=== PATIENT | female | born 2000 | race Caucasian/White ===

== ENCOUNTER 2021-03-27 20:06 | Observation (INO) | payer BC ==
[2021-03-27 20:32] LABS: BASO % 0.2 % (0.0-2.0); EOS % 0.1 % (0-4.0); GRAN # 15.8 K/mm3 (1.4-6.5); GRAN % 87.9 % (42.2-75.2); LYMPH # 1.5 K/mm3 (1.2-3.4); LYMPH % 8.2 % (20.0-51.0); MEAN CELL VOLUME 91 fl (80.0-100.0); MEAN CORPUSCULAR HEMOGLOBIN 31 pg (27.0-31.0); MEAN CORPUSCULAR HGB CONC 34 g/dl (33.0-37.0); MEAN PLATELET VOLUME 10.5 fl (7.4-10.4); MONO # 0.5 K/mm3 (0.1-0.6); PLATELET COUNT 317 K/mm3 (130-400); REDCELL DISTRIBUTION WIDTH-CV 11.9 % (11.5-14.5)
[2021-03-27 20:35] LABS: HEMATOCRIT 32.8 % (37.0-47.0)
[2021-03-27] MEDS ORDERED: LEXAPRO 10MG10 MG PO (20:43)
[2021-03-27] MEDS ORDERED: CYTOTEC 10100 MCG/TA PO (20:44)
[2021-03-27] MEDS ORDERED: LEXAPRO20 MG PO (20:44)
[2021-03-27 20:47] LABS: ALBUMIN 3.2 gm/dL (3.5-5.0); BILIRUBIN,TOTAL 0.5 mg/dL (0.2-1.2); CALCIUM 9.2 mg/dL (8.4-10.2); CREATININE, serum 0.77 mg/dL (0.57-1.11); POTASSIUM 3.4 mmol/L (3.5-4.5); TOTAL PROTEIN 6.9 gm/dL (6.2-8.1)
[2021-03-27 22:10] LABS: HEMATOCRIT 23.7 % (37.0-47.0); HEMOGLOBIN 7.9 g/dl (12.5-16.0)
[2021-03-28 00:30] VITALS: BP 90/50; PULSE 78; TEMP 98.3
--- NOTE | 2021-03-28 00:30 | NUR ---
0030 TO 222 PER STRETCHER FROM ER WITH C/O HEAVY VAGINAL BLEEDING STARTING LAST EVENING. STATES WAS ON CYTOTEC FOR 6 DAYS PRIOR FOR PREVENTION. THIS EVENING STARTED BLEEDING HEAVY AND SOAKING A LARGE V-PAD IN 30 MINUTES OR LESS. IV INFUSING PER IV PUMP AT 125CC/HR. VS DONE. UP TO BR WITH ASSIST TO VOID. VOIDED 200CC WITH SCANT [place]INK[place] VAG DISCHARGE NOTED. PAD AND PANTIES ON. NO C/O PAIN. INSTRUCTED ON NPO.
[2021-03-28 04:30] VITALS: BP 94/51; PULSE 65; TEMP 98.2
--- NOTE | 2021-03-28 04:30 | NUR ---
0430 PAD CHECKED. SCANT [place] DISCHARGE RHIANNON PAD. LAB IN TO DRAW BLOOD BUT UNABLE TO OBTAIN SPECIMEN
[2021-03-28 07:56] LABS: HEMATOCRIT 23.4 % (37.0-47.0); HEMOGLOBIN 7.7 g/dl (12.5-16.0)
[2021-03-28 08:00] VITALS: BP 106/61; PULSE 78
--- NOTE | 2021-03-28 09:50 | NUR ---
Discharge instructions and follow up care reviewed with pt. Pt verbalized an understanding, agreed with the plan and states no questions or concerns at this time.
== END 2021-03-28 08:00 | disposition home or self-care (01) ==
LOC: COL.ER 20:06 → OB 22:20
PROVIDERS: Nurse Practitioner Family; ADMIT Obstetrics & Gynecology
DX: O03.6 Delayed or excessive hemorrhage following complete or unspecified spontaneous abortion (principal); O90.81 Anemia of the puerperium; D64.9 Anemia, unspecified
CPT/HCPCS: G0378; J1885; J7030; P9016